=== PATIENT | female | born 1995 | race Caucasian/White ===

== ENCOUNTER 2021-06-10 23:39 | Emergency (ER) | payer BC, OTHER ==
[2021-06-11] MEDS ORDERED: KETOROLAC TROMETHAMINE 30 MG/1 ML VIAL IVPUSH ONE (00:37)
[2021-06-11] MEDS ORDERED: diazePAM 5 MG TABLET PO ONE (00:38)
[2021-06-11] MEDS ORDERED: KETOROLAC TROMETHAMINE 30 MG/1 ML VIAL ONE (01:22)
[2021-06-11] MEDS ORDERED: diazePAM 5 MG TABLET ONE (01:22)
[2021-06-11 02:19] LABS: BASO % 0.5 % (0-2.0); EOS % 0.3 % (0-4.5); HEMATOCRIT 37.9 % (32.4-45.2); HEMOGLOBIN 12.1 GM/dL (10.7-15.3); LYMPH % 25.2 % (8-40); MCH 20.4 pg (25.7-33.7); MEAN CELL VOLUME 63.9 fl (80-96); MEAN PLT VOLUME 9.7 fl (7.5-11.1); MONO % 4.8 % (3.8-10.2); NEUT % 69.2 % (42.8-82.8); PLATELET COUNT 258 10^3/uL (134-434); RBC 5.93 M/mm3 (3.60-5.2); RDW 15.1 % (11.6-15.6); WHITE BLOOD COUNT 9.6 K/mm3 (4.0-10.0)
[2021-06-11 02:30] LABS: INR 1.08 (0.83-1.09)
[2021-06-11 02:33] LABS: ACTIVATED PTT 33.2 SECONDS (25.2-36.5)
[2021-06-11 03:07] LABS: BLOOD UREA NITROGEN 11.2 mg/dL (7-18)
[2021-06-11 03:10] LABS: CREATININE 0.6 mg/dL (0.55-1.3)
[2021-06-11 03:11] LABS: BILIRUBIN,TOTAL 0.3 mg/dL (0.2-1); TOT PROT 7.4 g/dl (6.4-8.2)
[2021-06-11 05:35] LABS: ANISOCYTOSIS 1+; PLATELET ESTIMATE NORMAL; ROULEAU 1+
== END 2021-06-11 03:56 | disposition home or self-care (01) ==
LOC: FER 23:39
PROC: 3E0333Z Introduction of Anti-inflammatory into Peripheral Vein, Percutaneous Approach (ICD-10-PCS; principal; 2021-06-10)
DX: S29.012A Strain of muscle and tendon of back wall of thorax, initial encounter (principal); X50.0XXA Overexertion from strenuous movement or load, initial encounter
CPT/HCPCS: 36415; 71046-TC-FY; 80053; 85025; 85379; 85610; 85730; 93005; 99284-25